=== PATIENT | female | born 1985 | race Caucasian/White ===

== ENCOUNTER 2025-05-04 12:01 | Emergency (ER) | payer SELFPAY ==
[2025-05-04 13:02] LABS: APPEARANCE,URINE CLOUDY (CLEAR); GLUCOSE,URINE NEGATIVE (NEGATIVE); OCCULT BLOOD,URINE MODERATE (NEGATIVE)
[2025-05-04 13:12] LABS: SQUAMOUS EPITHELIAL CELLS,UR MANY /HPF; UROTHELIAL CELLS,URINE NOT SEEN /HPF
== END 2025-05-04 13:45 | disposition home or self-care (01) ==
LOC: JP.ED 12:01
DX: N39.0 Urinary tract infection, site not specified (principal); Z79.899 Other long term (current) drug therapy
CPT/HCPCS: 81001; 87086; 87088; 87186; 99284